=== PATIENT | female | born 1980 | race Caucasian/White ===

== ENCOUNTER 2016-09-06 09:36 | Emergency (ER) | payer MEDICAID ==
[2016-09-06] MEDS ORDERED: HYDROcod/ACETAM 5/325 MG TABLET PO STA (09:52)
[2016-09-06] MEDS ORDERED: HYDROcod/ACETAM 5/325 MG TABLET ONE (09:57)
== END 2016-09-06 10:53 | disposition home or self-care (01) ==
DX: O9A.211 Injury, poisoning and certain other consequences of external causes complicating pregnancy, first trimester (principal); S39.012A Strain of muscle, fascia and tendon of lower back, initial encounter; X58.XXXA Exposure to other specified factors, initial encounter; O09.521 Supervision of elderly multigravida, first trimester; Z3A.12 12 weeks gestation of pregnancy
CPT/HCPCS: 81003; 99283; A9270

== ENCOUNTER 2017-02-13 16:19 | Outpatient (CLI) | payer MEDICAID ==
[2017-02-13] MEDS ORDERED: TERBUTALINE 1 MG/ML VIAL SUBQ SCH (17:37)
[2017-02-13 18:11] LABS: BILIRUBIN,URINE NEGATIVE (NEGATIVE)
[2017-02-13 18:31] LABS: UR CULTURE IF IND NOT INDICATED
[2017-02-13 19:01] VITALS: BP 118/79
== END 2017-02-13 18:50 | disposition home or self-care (01) ==
LOC: WFO 16:19 → OB 16:23 → WFO 18:50
PROVIDERS: ATTEND Obstetrics & Gynecology
DX: O47.03 False labor before 37 completed weeks of gestation, third trimester (principal); Z3A.35 35 weeks gestation of pregnancy
CPT/HCPCS: 81001; 87086; 87797; 96372; 99213

== ENCOUNTER 2017-02-14 09:23 | Outpatient (CLI) | payer MEDICAID ==
[2017-02-14 11:17] VITALS: BP 137/74
== END 2017-02-14 10:38 | disposition home or self-care (01) ==
LOC: WFO 09:23 → OB 09:25 → WFO 10:38
PROVIDERS: ATTEND Obstetrics & Gynecology
DX: O47.03 False labor before 37 completed weeks of gestation, third trimester (principal); Z3A.35 35 weeks gestation of pregnancy
CPT/HCPCS: 99213

== ENCOUNTER 2017-03-14 16:52 | Emergency (ER) | payer MEDICAID ==
[2017-03-14 17:02] VITALS: BP 150/92
[2017-03-14] MEDS ORDERED: diphenhydrAMINE INJ 50 MG/ML VIAL IVP STA (17:56)
[2017-03-14] MEDS ORDERED: SODIUM CHLORIDE 0.9% 1,000 ML IV ONE (17:56)
[2017-03-14] MEDS ORDERED: ONDANSETRON 4 MG/2 ML VIAL IVP STA (17:56)
[2017-03-14 18:11] LABS: BASOPHILS # (AUTO) 0.1 10^3/uL (0.0-0.1); BASOPHILS % (AUTO) 0.8 %; EOSINOPHILS # (AUTO) 0.1 10^3/uL (0.0-0.7); EOSINOPHILS % (AUTO) 1.4 %; HCT - HEMATOCRIT 31.8 % (37.0-47.0); HGB - HEMOGLOBIN 10.5 g/dL (12.0-16.0); LYMPHOCYTES # (AUTO) 1.6 10^3/uL (1.5-3.5); LYMPHOCYTES % (AUTO) 24.5 %; MEAN CORPUSCULAR HEMOGLOBIN 25.8 pg (27.0-31.0); MEAN CORPUSCULAR HGB CONC 33.1 g/dL (32.0-36.0); MEAN CORPUSCULAR VOLUME 77.8 fL (81.0-99.0); MEAN PLATELET VOLUME 9.3 fL (7.9-10.8); MONOCYTES # (AUTO) 0.3 10^3/uL (0.0-1.0); MONOCYTES % (AUTO) 4.8 %; NEUTROPHILS # (AUTO) 4.6 10^3/uL (1.5-6.6); NEUTROPHILS % (AUTO) 68.5 %; NUCLEATED RED BLOOD CELLS AUTO 0.1 /100WBC; RED BLOOD COUNT 4.09 10^6/uL (4.20-5.40); RED CELL DISTRIBUTION WIDTH 19.2 % (12.0-15.0); UNCORRECTED WHITE BLOOD COUNT 6.7 x10^3/uL; WHITE BLOOD COUNT 6.7 x10^3/uL (4.8-10.8)
[2017-03-14 18:22] LABS: ALBUMIN/GLOBULIN RATIO 0.8 (1.0-2.2); BILIRUBIN,TOTAL 0.6 mg/dL (0.2-1.0); CREATININE 0.6 mg/dL (0.4-1.0); POTASSIUM 3.8 mmol/L (3.5-5.0); TOTAL PROTEIN 6.5 g/dL (6.7-8.2)
== END 2017-03-14 18:19 | disposition left against medical advice (07) ==
LOC: ED 16:52
DX: Z53.21 Procedure and treatment not carried out due to patient leaving prior to being seen by health care provider (principal)
CPT/HCPCS: 36415; 80053; 83690; 85025; 99283